=== PATIENT | male | born 1945 | race Caucasian/White ===

== ENCOUNTER 2018-07-09 06:39 | Day surgery (SDC) | payer MEDICARE ==
[~2018-07-09 06:39] MED LIST: Acetaminophen TAB* 325 MG PO PRN; Buffered Lidocaine 1% SYRIN* 1 ML/SYRINGE INTRADERM ONE
[2018-07-09] MEDS ORDERED: Midazolam* 1 MG/ML 2 ML VIAL (2 MG) ONE ×2 (08:21→08:30)
[2018-07-09 08:57] VITALS: BP 129/78
--- NOTE | 2018-07-09 12:26 | OP ---
Amended report to enter date of operation. OPERATIVE NOTE: DATE OF OPERATION: 07/09/18 - [facility] DATE OF : 41 SURGEON: Jay Mello M.D. PREOPERATIVE DIAGNOSIS: Cataract, right eye. POSTOPERATIVE DIAGNOSIS: Cataract, right eye. OPERATIVE PROCEDURE: Extracapsular cataract extraction with intraocular lens implant, right eye. PROCEDURE: The patient was brought to the operating room after being given 1/2 % Alcaine with epinephrine drops in the preoperative area. The eye was prepped and draped in the usual sterile fashion. Sterile drape and eyelid speculum were placed. Again, topical 1/2% Alcaine with epinephrine was given. A paracentesis incision was made at the 9 o'clock position with the No. 75 blade. Clear cornea incision 2.2 x 2.2-mm was created at the 12 o'clock position starting at the anterior limbus using the 2.2-mm keratome. The anterior chamber was irrigated with 0.4 mL of 1% non-preservative intracameral lidocaine and filled with DisCoVisc. A capsulorrhexis was completed using the cystotome and the Utrata forceps. Hydrodissection was performed with balanced salt solution. The lens nucleus was removed with the Phacoemulsification handpiece without incident. Cortex was removed with the irrigation-aspiration handpiece. The capsular bag was re-inflated using DisCoVisc and an SN60WF 21.0 Implant was inserted with the shooter. The irrigation-aspiration handpiece was used to remove all residual DisCoVisc. The eye was refilled with balanced salt solution and the wound checked and found to be watertight. Topical Maxitrol drops were given. [id number]/[facility] #: [id number] [facility]
[2018-07-09] MEDS ORDERED: Proparacaine 0.5% OPHTH.SOL* 15 ML BTL ONE (13:59)
[2018-07-09] MEDS ORDERED: Povidone Iodine 5% OPTH* 30 ML BTL ONE (13:59)
[2018-07-09] MEDS ORDERED: Cyclopentolate 1% OPTH.SOL* 2 ML BTL ONE (13:59)
[2018-07-09] MEDS ORDERED: Neomycin/Polymy/Dex OPTH.SUSP* MAXITROL 0.1% 5 ML ONE (13:59)
[2018-07-09] MEDS ORDERED: Lidocaine 2% EPI 1:200000 MPF*10-20 ML VIAL ONE (13:59)
[2018-07-09] MEDS ORDERED: Lidocaine 1%* 5 ML VIAL ONE (13:59)
[2018-07-09] MEDS ORDERED: acetaZOLAMIDE TAB* 250 MG ONE (13:59)
[2018-07-09] MEDS ORDERED: Ketorolac 0.5% OPHTH (NF) 0.5 % 5 ML BTL ONE (13:59)
[2018-07-09] MEDS ORDERED: Phenylephrine OPHTH SOL 2.5%* 2 ML ONE (13:59)
== END 2018-07-09 09:06 | disposition home or self-care (01) ==
LOC: OREAST 06:39
PROVIDERS: ATTEND Specialist
DX: H25.811 Combined forms of age-related cataract, right eye (principal); H35.3111 Nonexudative age-related macular degeneration, right eye, early dry stage; Z87.891 Personal history of nicotine dependence; I10 Essential (primary) hypertension
CPT/HCPCS: A9270-GY; J2250; V2632

== ENCOUNTER 2018-07-16 06:15 | Day surgery (SDC) | payer MEDICARE ==
[2018-07-16] MEDS ORDERED: Midazolam* 1 MG/ML 2 ML VIAL (2 MG) ONE ×2 (07:19→07:30)
[2018-07-16 08:11] VITALS: BP 126/73
--- NOTE | 2018-07-16 08:29 | OP ---
DATE OF OPERATION: 07/16/18 [facility] DATE OF : 41 SURGEON: Jay Mello MD PREOPERATIVE DIAGNOSIS: Cataract, left eye. POSTOPERATIVE DIAGNOSIS: Cataract, left eye. OPERATIVE PROCEDURE: Extracapsular cataract extraction with IOL left eye. DESCRIPTION OF PROCEDURE: The patient was brought to the operating room after being given 1/2% Alcaine with epinephrine drops in the preoperative area. The eye was prepped and draped in the usual sterile fashion. Sterile drape and eyelid speculum were placed. Again, topical 1/2% Alcaine with epinephrine was given. A paracentesis incision was made at the 3 o'clock position with the No.75 blade. Clear cornea incision 2.2 x 2.2-mm was created at the 6 o'clock position starting at the anterior limbus using the 2.2-mm keratome. The anterior chamber was irrigated with 0.4 mL of 1% non-preservative intracameral lidocaine and filled with DisCoVisc. A capsulorrhexis was completed using the cystotome and the Utrata forceps. Hydrodissection was performed with balanced salt solution. The lens nucleus was removed with the Phacoemulsification handpiece without incident. Cortex was removed with the irrigation-aspiration handpiece. The capsular bag was re-inflated using DisCoVisc and an SN60WF 21.5 implant was inserted with the shooter. The irrigation-aspiration handpiece was used to remove all residual DisCoVisc. The eye was refilled with balanced salt solution and the wound checked and found to be watertight. Topical Maxitrol drops were given. [id number]/[facility] #: [id number] [facility]
[2018-07-16] MEDS ORDERED: Phenylephrine OPHTH SOL 2.5%* 2 ML ONE (09:42)
[2018-07-16] MEDS ORDERED: Proparacaine 0.5% OPHTH.SOL* 15 ML BTL ONE (09:42)
[2018-07-16] MEDS ORDERED: Ketorolac 0.5% OPHTH (NF) 0.5 % 5 ML BTL ONE (09:42)
[2018-07-16] MEDS ORDERED: acetaZOLAMIDE TAB* 250 MG ONE (09:42)
[2018-07-16] MEDS ORDERED: Cyclopentolate 1% OPTH.SOL* 2 ML BTL ONE (09:42)
[2018-07-16] MEDS ORDERED: Lidocaine 1%* 5 ML VIAL ONE (09:42)
[2018-07-16] MEDS ORDERED: Lidocaine 2% EPI 1:200000 MPF*10-20 ML VIAL ONE (09:42)
[2018-07-16] MEDS ORDERED: Neomycin/Polymy/Dex OPTH.SUSP* MAXITROL 0.1% 5 ML ONE (09:42)
[2018-07-16] MEDS ORDERED: Povidone Iodine 5% OPTH* 30 ML BTL ONE (09:42)
== END 2018-07-16 08:22 | disposition home or self-care (01) ==
LOC: OREAST 06:15
PROVIDERS: ATTEND Specialist
DX: H25.812 Combined forms of age-related cataract, left eye (principal); H35.3111 Nonexudative age-related macular degeneration, right eye, early dry stage; Z88.0 Allergy status to penicillin; Z87.891 Personal history of nicotine dependence; I10 Essential (primary) hypertension
CPT/HCPCS: A9270-GY; J2250; V2632

== ENCOUNTER 2018-09-16 10:04 | Emergency (ER) | payer MEDICARE ==
[2018-09-16 10:16] VITALS: BP 140/78
--- NOTE | 2018-09-16 10:22 | UC ---
Bite Injury/Animal HPI - HPI Summary HPI Summary: Pt presents requesting evaluation of wound on right posterior leg - pt states concerned there is a tick - states "picked at it" mild tendderness No foreign body noted tetanus uptodate No fever, chills no cp, sob, abd pain no n /v/d No urias, vision changes Tdap UTD medications reviewed this visit - History of Current Complaint Chief Complaint: UCSkin Stated Complaint: RT LEG TICK BITE Time Seen by Provider: 09/16/18 10:21 Hx Obtained From: Patient Severity Currently: None Severity Initially: Mild Pain Intensity: 0 - Allergies/Home Medications Allergies/Adverse Reactions: Allergies Allergy/AdvReac Type Severity Reaction Status Date / Time Penicillins Allergy Rash Verified 09/16/18 10:16 PMH/Surg Hx/FS Hx/Imm Hx Previously Healthy: Yes Cardiovascular History: Hypertension - Surgical History Surgical History: Yes Surgery Procedure, Year, and Place: 2006 LEFT SPERMATOCELE SURGERY, [facility]. hernia x2, [facility] - Family History Known Family History: Positive: None - Social History Occupation: Retired Lives: With Family Alcohol Use: Daily Alcohol Amount: 1-2 Substance Use Type: None Smoking Status (MU): Former Smoker Amount Used/How Often: 5 cigs per day When Did the Patient Quit Smoking/Using Tobacco: 10 yrs ago Review of Systems All Other Systems Reviewed And Are Negative: Yes Skin: Positive: Other - left posterior leg wound Physical Exam - Summary Physical Exam Summary: Vital Signs Reviewed: Yes A+Ox3, no distress Eyes: Conjunctiva Clear, ENT: Hearing grossly normal Neck: Positive: Supple Respiratory: Positive: No respiratory distress, No accessory muscle use speaking full, easy sentences Cardiovascular: RRR nl s1, s2 no m/r CBT <2 sec abd soft + BS nt/nd no guarding, no distension Musculoskeletal Exam: CHO x 4 without difficulty Strength Intact, ROM Intact, ambulatory without difficulty Neurological: Positive: Alert, + sensation throughout Psychological: Positive: Normal Response To slackman Skin: Positive: right posterior leg - pt with a wound with thin scab - cleansed and lifted - no foreign body, no purulent discharge, no drainage, no foreign body smalll wound, not concerning for infection. Noted pt with wound on left posterior LE just superior to knee - tick noted to be embedded - easily removed alive and intact with tick twister Pt tolerate well Triage Information Reviewed: Yes Vital Signs: Initial Vital Signs Temp 98.3 F 09/16/18 10:14 Pulse 59 09/16/18 10:14 Resp 16 09/16/18 10:14 BP 140/78 09/16/18 10:14 Pulse Ox 99 09/16/18 10:14 Bite Injury Course/Dx - Course Course Of Treatment: Pt presents requesting evaluation of right posterior leg wound - concern for tick - wound with small scab - no foreign body, no drainage Pt noted to have tick embedded LLE - easily removed intact d/w pt at length will give 1 dose doxy - likely 36 hours for other leg - abx ointment, bandage monitor for s/s infection return precautions slight elevated BP - h/o similar - Differential Dx/Diagnosis Provider Diagnosis: Tick bite, Wound of left lower extremity Discharge - Sign-Out/Discharge Documenting (check all that apply): Patient Departure All imaging exams completed and their final reports reviewed: No Studies - Discharge Plan Condition: Stable Disposition: HOME Patient Education Materials: Tick Bite (ED), Acute Wounds (ED) Referrals: Mike Chapin MD [Primary Care Provider] - Additional Instructions: Keep area clean and dry Check yourself daily for ticks after you have been working in the [employer] Contact your doctor or return with questions or concerns Approach to prophylaxis : According to the Infectious Diseases Society of [place] (IDSA) guidelines that recommend antibiotic prophylaxis only in patients who meet all of the following criteria: 1. Attached tick identified as an adult or nymphal I. scapularis tick (deer tick). 2. Tick is estimated to have been attached for 36 hours (by degree of engorgement or time of exposure). 3. Prophylaxis is begun within 72 hours of tick removal. Local rate of infection of ticks with B. burgdorferi is 20 percent if attached for over 48 hours (these rates of infection have been shown to occur in parts of [place], parts of the [facility], and parts of [place] and [place]). If you experience a tick and time of attachment is believed to be less than 36 hours, you may remove the tick with head intact and no need for prophylaxis. If over 36 hours, please come into UC. Prophylactic doxycycline is not recommended for ticks attached less than 36 hours. For your wounds - cover with a thin layer of antibiotic ointment (neosporin, polysporin) and bandaid Okay to apply warm, wet cloth to wound - Contact your doctor or return with questions or concerns - Billing Disposition and Condition Condition: STABLE Disposition: Home
[2018-09-16] MEDS ORDERED: DOXYcycline CAP(*) 100 MG PO ONE (10:33)
== END 2018-09-16 10:44 | disposition home or self-care (01) ==
LOC: UCEAST 10:04
DX: T63.481A Toxic effect of venom of other arthropod, accidental (unintentional), initial encounter (principal); Y92.9 Unspecified place or not applicable; I10 Essential (primary) hypertension; Z87.891 Personal history of nicotine dependence; Z88.0 Allergy status to penicillin
CPT/HCPCS: 99212; A9270-GY; G0463

== ENCOUNTER 2019-04-26 14:27 | Emergency (ER) | payer MEDICARE ==
[2019-04-26 16:22] VITALS: BP 138/77
--- NOTE | 2019-04-26 16:27 | ED ---
Head Injury - HPI Summary HPI Summary: This patient is an otherwise healthy 74-year-old male who presents to the ED with a head injury. Patient is coming from urgent care. Patient was sent here due to his head injury which occurred this morning. He states he was out hiking when he tripped and fell, landing over to his right side and hitting the right side of his head just near the eyebrow. Denies any visual changes. Denies any pain to the maxillary area or to the jaw. Denies any headache. He states he may have had a brief loss of consciousness and had some memory lapses in the next 30 minutes or so. He states he feels well now. He does endorse a very slight tenderness to the right ribs, however this is not worse with palpation. Denies any shortness of breath. He states he feels otherwise well, has not taken any medication for relief and declines medications on arrival. Patient is not on blood thinners. - History Of Current Complaint Chief Complaint: EDFall Stated Complaint: FALL HEAD INJURY FROM CC Time Seen by Provider: 04/26/19 14:59 Hx Obtained From: Patient Mechanism Of Injury: Direct Blow Onset/Duration: Started Minutes Ago Severity Currently: None Severity Initially: Mild Pain Intensity: 1 Pain Scale Used: 0-10 Numeric Associated Signs And Symptoms: LOC (Time In Secs./Mins/Hrs), Memory Loss, Bruising - eye - Risk Factors SDH Risk Factor: Male - Allergies/Home Medications Allergies/Adverse Reactions: Allergies Allergy/AdvReac Type Severity Reaction Status Date / Time Penicillins Allergy Rash Verified 04/26/19 14:37 PMH/Surg Hx/FS Hx/Imm Hx Previously Healthy: Yes Endocrine/Hematology History: Denies: Hx Diabetes, Hx Thyroid Disease Cardiovascular History: Reports: Hx Hypertension - MEDS Denies: Other Cardiovascular Problems/Disorders Respiratory History: Denies: Hx Asthma, Hx Chronic Obstructive Pulmonary Disease (COPD), Other Respiratory Problems/Disorders GI History: Denies: Hx Ulcer Musculoskeletal History: Reports: Hx Arthritis Denies: Hx Rheumatoid Arthritis, Hx Osteoporosis, Other Musculoskeletal History Sensory History: Reports: Hx Cataracts - shae, Hx Contacts or Glasses - GLASSES, Hx Hearing Aid - shae Opthamlomology History: Reports: Hx Cataracts - shae, Hx Contacts or Glasses - GLASSES Psychiatric History: Reports: Hx Anxiety - Surgical History Surgery Procedure, Year, and Place: 2006 LEFT SPERMATOCELE SURGERY, [facility] [place]. hernia x2, [facility] Hx Anesthesia Reactions: No - Immunization History Date of Tetanus Vaccine: utd Hx Pertussis Vaccination: No Immunizations Up to Date: Yes Infectious Disease History: No Infectious Disease History: Denies: Hx Hepatitis, Hx Human Immunodeficiency Virus (HIV), Traveled Outside the [place] in Last 30 Days - Family History Known Family History: Positive: None - Social History Occupation: Unemployed Lives: With Family Alcohol Use: Daily Alcohol Amount: 1-2 Hx Substance Use: No Substance Use Type: Reports: None Smoking Status (MU): Former Smoker Amount Used/How Often: 5 cigs per day Review of Systems Negative: Fever, Chills, Fatigue, Skin Diaphoresis Negative: Palpitations, Chest Pain Negative: Shortness Of Breath, Cough Genitourinary: Negative Positive: no symptoms reported, see HPI Negative: Arthralgia, Myalgia Skin: Other - small abrasion to the R eyebrow Positive: Bruising - eye - R Neurological: Negative All Other Systems Reviewed And Are Negative: Yes Physical Exam Triage Information Reviewed: Yes Vital Signs On Initial Exam: Initial Vitals Temp Pulse Resp BP Pulse Ox 98.9 F 77 19 138/76 97 04/26/19 14:34 04/26/19 14:34 04/26/19 14:34 04/26/19 14:34 04/26/19 14:34 Vital Signs Reviewed: Yes Appearance: Positive: Well-Appearing, Well-Nourished Skin: Positive: Warm, Skin Color Reflects Adequate Perfusion Head/Face: Positive: Normal Head/Face Inspection Eyes: Positive: EOMI, Conjunctiva Clear Neck: Positive: Supple, No Lymphadenopathy Respiratory/Lung Sounds: Positive: Clear to Auscultation, Breath Sounds Present Cardiovascular: Positive: RRR, Pulses are Symmetrical in both Upper and Lower Extremities Neurological: Positive: Sensory/Motor Intact, Alert, Oriented to Person Place, Time, Speech Normal Psychiatric: Positive: Normal, Affect/Mood Appropriate AVPU Assessment: Alert Procedures - Sedation Patient Received Moderate/Deep Sedation with Procedure: No Diagnostics - Vital Signs Vital Signs Temp Pulse Resp BP Pulse Ox 04/26/19 16:22 97 F 77 18 138/77 99 04/26/19 14:34 98.9 F 77 19 138/76 97 - Laboratory Lab Statement: Any lab studies that have been ordered have been reviewed, and results considered in the medical decision making process. Head Injury Course/Dx Course Of Treatment: This patient is evaluated for a head injury. Patient recently fell this morning, injuring the right side of his head. He does have some ecchymosis surrounding the right eye without conjunctival injection or signs of entrapment of the right eye. Patient denies any visual changes. Neurologically intact. Denies any headache or head pain currently. Endorsing slight pain to the right ribs without radiation. This is not worse with palpation. Lungs are CTA, RRR. Brain CT was obtained which shows no acute intracranial abnormality area patient is stable, ambulating well denies any symptoms currently. - Diagnoses Differential Diagnosis/HQI/PQRI: Concussion With LOC, Concussion Without LOC, Contusion Provider Diagnoses: Contusion, Ecchymosis of eye Discharge ED - Sign-Out/Discharge Documenting (check all that apply): Patient Departure - Discharge Plan Condition: Stable Disposition: HOME Patient Education Materials: Head Injury (ED) Referrals: Mike Chapin MD [Primary Care Provider] - - Billing Disposition and Condition Condition: STABLE Disposition: Home
== END 2019-04-26 16:22 | disposition home or self-care (01) ==
LOC: ED 14:27
DX: S05.11XA Contusion of eyeball and orbital tissues, right eye, initial encounter (principal); S06.9X9A Unspecified intracranial injury with loss of consciousness of unspecified duration, initial encounter; W01.0XXA Fall on same level from slipping, tripping and stumbling without subsequent striking against object, initial encounter; Y93.01 Activity, walking, marching and hiking; Y92.9 Unspecified place or not applicable; I10 Essential (primary) hypertension; Z79.899 Other long term (current) drug therapy; Z88.0 Allergy status to penicillin; Z87.891 Personal history of nicotine dependence
CPT/HCPCS: 70450; 99282